=== PATIENT | female | born 1995 | race African-American/Black ===

== ENCOUNTER 2021-08-01 10:15 | Emergency (ER) | payer MEDICAID ==
[~2021-08-01] VITALS: Ht 152.4 cm; Wt 78.0 kg
[2021-08-01] MEDS ORDERED: MORPHINE SULFATE 4 MG/ML DISP.SYRIN. IV ONE (11:00)
[2021-08-01] MEDS ORDERED: IOHEXOL 300 MG/ML 75 ML VIAL. IV ONE (11:00)
--- NOTE | 2021-08-01 11:02 | PHYS DOC ---
Past History Additional Past Medical Histor: LUps Past Surgical History: Alcohol Use: None General Adult EDM: Chief Complaint: POST-OP PROBLEM HPI: HPI: Patient is a 26-year-old female coming in for low abdominal pain. Patient is a G2, P2 status post July 14. Patient states that she did not have any complications other than an IUGR requiring her be 3 weeks . Patient states that her last she had "opened up" and was infected. States that she has had a small months of vaginal bleeding and discharge that is yellowish. Patient denies any sexual activity since her . Is not breast-feeding. Has had subjective fever. Patient states she has had diarrhea but denies any urinary complaints. States that her abdomen feels like it is bloated. Patient is hypertensive but denies any known history of hypertension. Review of Systems: Review of Systems: All other systems within normal limits except for as noted in the HPI Current Medications: Current Meds: Current Medications Medications (Trade) Dose Ordered Sig/Marifer Start Time Stop Time Status Last Admin Dose Admin Iohexol (Omnipaque 300 Mg/ml) 75 ml 1X ONCE 08/01/21 11:00 08/01/21 11:01 Morphine Sulfate (Morphine 4mg Syringe) 4 mg 1X ONCE 08/01/21 11:00 08/01/21 11:01 Allergies: Allergies: Allergies Coded Allergies Type Severity Reaction Last Updated Verified No Known Drug Allergies 08/01/21 No Physical Exam: PE: Constitutional: Well developed, well nourished, no acute distress, non-toxic appearance. [] HENT: Normocephalic, atraumatic, bilateral external ears normal, nose normal. [] Eyes: PERRLA, conjunctiva normal, no discharge. [] Neck: No rigidity, supple, no stridor. [] Cardiovascular: Regular rate and rhythm, brisk cap refill [] Lungs & Thorax: Non labored symmetric respirations, no tachypnea or respiratory distress [] Abdomen: Soft, mild distention, generalized tenderness Skin: Warm, dry, no erythema, no rash. Pfannenstiel surgical incision is clean dry and intact [] Back: Unremarkable Extremities: No deformities, range of motion grossly intact, no lower extremity edema [] Neurologic: Alert and oriented X 3, no focal deficits noted. [] Psychologic: Affect normal, judgement normal, mood normal. [] Current Patient Data: Vital Signs: Vital Signs Date Time Temp Pulse Resp B/P (MAP) Pulse Ox O2 Delivery O2 Flow Rate FiO2 08/01/21 10:35 98.1 66 16 168/126 (140) 96 Room Air EKG: EKG: [] Radiology/Procedures: Radiology/Procedures: [address] [address] IMAGING REPORT Signed PATIENT: LESLEE BLACKMON ACCOUNT: [id number] : 1995 LOCATION: ER AGE: 26 SEX: F EXAM STATUS: REG ER ORD. PHYSICIAN: STEWART ZAMBRANO MD REASON: post c section pain, swelling OMNI [id number] PROCEDURE: CT ABD PELV W/ IV CONTRST ONLY EXAMINATION: CT abdomen and pelvis with IV contrast. INDICATION:26 years, Female, post pain, swelling. TECHNIQUE: Axial CT images of the abdomen and pelvis were obtained. Coronal and sagittal reformatted performed. COMPARISON: None.. Exposure: One or more of the following individualized dose reduction techniques were utilized for this examination: 1. Automated exposure control 2. Adjustment of the mA and/or kV according to patient size 3. Use of iterative reconstruction technique. FINDINGS: LOWER CHEST: Small to moderate pericardial effusion. Borderline cardiomegaly. Small right and trace left pleural effusions. ABDOMEN/PELVIS: Mild hepatomegaly measures up to 18.0 cm in length. Heterogeneous enhancement of the liver parenchyma. No suspicious focal hepatic lesion. Diffuse gallbladder wall thickening with submucosal edema. No calcified cholelithiasis. No biliary ductal dilation. Spleen, pancreas and adrenal glands are unremarkable. No hydronephrosis in either kidney. Punctate (2 mm) nonobstructing left nephrolithiasis. No bowel dilation. Mild wall thickening of the ascending and transverse colon without adjacent fat stranding. Appendix is not seen with certainty. Surgical clips in the right lower quadrant. Small amount of abdominopelvic ascites with diffuse mesenteric edema. No pneumoperitoneum. Normal caliber abdominal aorta. Mesenteric arteries and portal vein are patent. Mildly distended left gonadal vein with left parauterine varices. Enlarged post gravid uterus changes. Focal defect in the lower anterior uterine segment, secondary to section scarring. Unremarkable urinary bladder. MUSCULOSKELETAL STRUCTURES: Postsurgical changes along the lower anterior abdominal wall with scarring. There is a 5.0 x 0.8 x 1.2 cm loculated fluid collection within the lower anterior abdominal wall musculatures (series 2 image 65). Mild diffuse anasarca. Small fat-containing periumbilical hernia. No acute process process. IMPRESSION: 1. Postsurgical changes along the lower anterior abdominal wall with loculated 5.0 x 0.8 x 1.2 cm fluid collection within the lower anterior abdominal wall musculatures. This could be a postoperative seroma. Underlying infection cannot be excluded. Clinical correlation is advised. 2. Findings of fluid overload with small amount of abdominopelvic ascites with diffuse mesenteric edema, heterogeneous enhancement of the liver parenchyma reflecting edema, diffuse gallbladder wall edema, small to moderate pericardial effusion, small bilateral pleural effusions and mild diffuse anasarca. 3. Mild wall thickening of the ascending and transverse colon without adjacent fat stranding, may relate to fluid overload or colitis. 4. Punctate nonobstructing left nephrolithiasis. Electronically signed by: Mauricio Davidson MD (08/01/2021 12:21 PM) [id number] DICTATED AND SIGNED BY: MAURICIO DAVIDSON MD DATE: 08/01/21 1211 CC: STEWART ZAMBRANO MD; NOAH ORTEGA MD; NON,STAFF ~MTH0 0 [] Heart Score: C/O Chest Pain: No Risk Factors: Risk Factors: DM, Current or recent (<one month) smoker, HTN, HLP, family history of CAD, obesity. Risk Scores: Score 0 - 3: 2.5% MACE over next 6 weeks - Discharge Home Score 4 - 6: 20.3% MACE over next 6 weeks - Admit for Clinical Observation Score 7 - 10: 72.7% MACE over next 6 weeks - Early Invasive Strategies Course & Med Decision Making: Course & Med Decision Making Pertinent Labs and Imaging studies reviewed. (See chart for details) Discussed patient transfer with [facility] at [facility], unable to accept due to lack of telemetry beds at 1400. Contacted and was accepted to Dr. Loco. Patient likely has preeclampsia, also has heart failure unsure if it was related or peripartum related. Patient's blood pressure treated with hydralazine due to the elevated BNP [] Sherlyn Disclaimer: Sherlyn Disclaimer: This electronic medical record was generated, in whole or in part, using a voice recognition dictation system. Departure Departure: Impression: Primary Impression: Preeclampsia Additional Impressions: UTI (urinary tract infection) Post-op pain Heart failure Disposition: 02 SHORT TERM HOSPITAL Condition: GUARDED Referrals: NON,STAFF (PCP) STEWART ZAMBRAON MD Aug 01, 2021 11:02
[2021-08-01 11:25] LABS: BASO % 0 % (0-3); EOS % 0 % (0-3); HEMATOCRIT 30.5 % (36.0-47.0); HEMOGLOBIN 9.7 g/dL (12.0-15.5); LYMPH # 0.8 x10^3/uL (1.0-4.8); LYMPH % 19 % (24-48); MEAN CORPUSCULAR HEMOGLOBIN 32 pg (25-35); MEAN CORPUSCULAR HGB CONC 32 g/dL (31-37); MEAN CORPUSCULAR VOLUME 100 fL (79-100); MONO # 0.3 x10^3/uL (0.0-1.1); MONO % 9 % (0-9); NEUT # 2.8 x10^3uL (1.8-7.7); NEUT % 72 % (31-73); PLATELET COUNT 202 x10^3/uL (140-400); RED BLOOD COUNT 3.06 x10^6/uL (3.50-5.40); RED CELL DISTRIBUTION WIDTH 13.6 % (11.5-14.5)
[2021-08-01 11:33] LABS: CALCIUM 7.4 mg/dL (8.5-10.1); CREATININE 1.4 mg/dL (0.6-1.0); GFR 55.9; POTASSIUM 4.2 mmol/L (3.5-5.1)
[2021-08-01 11:47] LABS: ALBUMIN 2.3 g/dL (3.4-5.0); ALBUMIN/GLOBULIN RATIO 0.7 (1.0-1.7); MAGNESIUM 1.9 mg/dL (1.8-2.4); TOTAL BILIRUBIN 0.3 mg/dL (0.2-1.0); TOTAL PROTEIN 5.4 g/dL (6.4-8.2)
[2021-08-01] MEDS ORDERED: IV NORMAL SALINE 1,000ML 1,000 ML IV ONE (12:00)
--- NOTE | 2021-08-01 12:24 | RAD ---
EXAMINATION: CT abdomen and pelvis with IV contrast. INDICATION:26 years, Female, post pain, swelling. TECHNIQUE: Axial CT images of the abdomen and pelvis were obtained. Coronal and sagittal reformatted performed. COMPARISON: None.. Exposure: One or more of the following individualized dose reduction techniques were utilized for thi s examination: 1. Automated exposure control 2. Adjustment of the mA and/or kV according to patient size 3. Use of iterative reconstruction technique. FINDINGS: LOWER CHEST: Small to moderate pericardial effusion. Borderline cardiomegaly. Small right and trace left pleural e ffusions. ABDOMEN/PELVIS: Mild hepatomegaly measures up to 18.0 cm in length. Heterogeneous enhancement of the liver parenchyma . No suspicious focal hepatic lesion. Diffuse gallbladder wall thickening with submucosal edema. No c alcified cholelithiasis. No biliary ductal dilation. Spleen, pancreas and adrenal glands are unremark able. No hydronephrosis in either kidney. Punctate (2 mm) nonobstructing left nephrolithiasis. No bowel dilation. Mild wall thickening of the ascending and transverse colon without adjacent fat st randing. Appendix is not seen with certainty. Surgical clips in the right lower quadrant. Small amoun t of abdominopelvic ascites with diffuse mesenteric edema. No pneumoperitoneum. Normal caliber abdomi nal aorta. Mesenteric arteries and portal vein are patent. Mildly distended left gonadal vein with le ft parauterine varices. Enlarged post gravid uterus changes. Focal defect in the lower anterior uteri ne segment, secondary to section scarring. Unremarkable urinary bladder. MUSCULOSKELETAL STRUCTURES: Postsurgical changes along the lower anterior abdominal wall with scarring. There is a 5.0 x 0.8 x 1. 2 cm loculated fluid collection within the lower anterior abdominal wall musculatures (series 2 image 65). Mild diffuse anasarca. Small fat-containing periumbilical hernia. No acute process process. IMPRESSION: 1. Postsurgical changes along the lower anterior abdominal wall with loculated 5.0 x 0.8 x 1.2 cm fl uid collection within the lower anterior abdominal wall musculatures. This could be a postoperative s eroma. Underlying infection cannot be excluded. Clinical correlation is advised. 2. Findings of fluid overload with small amount of abdominopelvic ascites with diffuse mesenteric ed catherine, heterogeneous enhancement of the liver parenchyma reflecting edema, diffuse gallbladder wall huseyin ma, small to moderate pericardial effusion, small bilateral pleural effusions and mild diffuse anasar ca. 3. Mild wall thickening of the ascending and transverse colon without adjacent fat stranding, may re late to fluid overload or colitis. 4. Punctate nonobstructing left nephrolithiasis. Electronically signed by: Peter Davidson MD (08/01/2021 12:21 PM) [id number]
[2021-08-01] MEDS ORDERED: hydrALAZINE 20 MG/ML VIAL. IV ONE ×2 (12:45→14:15)
[2021-08-01 12:48] LABS: BILIRUBIN,URINE NEG (NEG); CLARITY,URINE HAZY; COLOR,URINE YELLOW; GLUCOSE,URINE NEG (NEG)
[2021-08-01 12:49] LABS: BACTERIA,URINE MANY /HPF (0-FEW); NITRITE,URINE NEG (NEG); SQUAMOUS EPITHELIAL CELL,UR MOD /LPF; UROBILINOGEN,URINE 0.2 mg/dL (0.2 mg/dL); WBC,URINE >40 /HPF (0-4)
[2021-08-01] MEDS ORDERED: IV NORMAL SALINE 50ML 50 ML ONE (14:24)
[2021-08-01] MEDS ORDERED: cefTRIAXone SODIUM 1 GM VIAL ONE (14:24)
[2021-08-01] MEDS ORDERED: hydrALAZINE 20 MG/ML VIAL. IV PRN (16:45)
[2021-08-01 17:12] VITALS: BP 149/99
[2021-08-03 21:08] LABS: CHLAMYDIA PROBE Negative (Negative)
== END 2021-08-01 19:33 | disposition short-term general hospital (02) ==
LOC: ER 10:15
DX: O14.95 Unspecified pre-eclampsia, complicating the puerperium (principal); O86.20 Urinary tract infection following delivery, unspecified; N39.0 Urinary tract infection, site not specified; G89.18 Other acute postprocedural pain; I50.9 Heart failure, unspecified; Z20.822 Contact with and (suspected) exposure to COVID-19; Z98.890 Other specified postprocedural states
CPT/HCPCS: 74177; 80053; 81001; 83605; 83690; 83735; 83880; 84484; 85025; 87086; 87426; 87491; 87591; 96365; 96375; 96376; 99285; C9803; J0360; J0696; J2270; Q0111; Q9967; U0003